=== PATIENT | male | born 1970 ===

== ENCOUNTER 2020-11-07 09:57 | Emergency (ER) | payer OTHER, SELFPAY ==
[2020-11-07 10:13] VITALS: BP 179/90; PULSE 89; RESP 18; TEMP 36.9; O2SAT 95; BMI 40.3
--- NOTE | 2020-11-07 10:31 | ED_ITS ---
HPI - General Adult General Chief complaint: General Medical Stated complaint: leg,knee shoulder pain,work inj Time Seen by Provider: 11/07/20 10:31 Source: patient Mode of arrival: ambulatory Limitations: no limitations History of Present Illness HPI narrative: Patient says yesterday while he was at work a metal door from a truck rolled down onto his back. It did not hit his head and there was no loss of consciousness. He is here with posterior upper arm and right shoulder pain. He also has some left knee pain as he fell to the ground striking his left knee. He believes when he fell he also twisted his lower back and has some pain there. Onset (ago): day(s) Location: back, left, right, upper extremity and lower extremity Radiation: non-radiation Severity: mild Pain Consistency: intermittent Relieving factors: none Exacerbating factors: none Associated symptoms: denies other symptoms Treatments prior to arrival: none Related Data Previous Rx's Medication Instructions Recorded cyclobenzaprine 10 mg PO TID PRN #10 tab 11/07/20 ibuprofen 800 mg PO Q8H PRN #10 tab 11/07/20 Allergies Allergy/AdvReac Type Severity Reaction Status Date / Time From Percocet Allergy Intermediate HIVES Uncoded 07/20/20 15:58 Review of Systems Review of Systems: Yes all other systems are reviewed and are negative Constitutional: Constitutional: Reports no additional constitutional complaints, Denies body ache(s), Denies chills, Denies fever(s), Denies headache(s) and Denies weakness Eyes: Eyes: Reports no additional eye complaints and Denies change in vision ENT: Reports system reviewed and no additional complaints, except as documented, Denies dizziness, Denies headache(s), Denies nasal congestion, Denies nasal discharge and Denies neck pain Cardiovascular: Cardiovascular: Reports no additional cardiovascular complaints, Denies chest pain, Denies leg edema and Denies dyspnea Respiratory: Respiratory: Reports no additional respiratory complaints, Denies cough and Denies dyspnea Gastrointestinal: Gastrointestinal: Reports no additional gastrointestinal complaints, Denies abdominal pain, Denies diarrhea, Denies nausea and Denies vomiting Genitourinary: Genitourinary: Denies urinary incontinence Musculoskeletal: Musculoskeletal: Reports no additional musculoskeletal complaints, Denies back pain, Reports arthralgias, Denies joint swelling, Denies neck pain, Denies numbness and Denies tingling Integumentary/Breasts: Skin/Breast: Reports system reviewed and no additional complaints, except as docu and Denies rash Neurologic: Reports system reviewed and no additional complaints, except as documented, Denies Abnormal speech present, Denies dizziness, Denies headache(s), Denies numbness, Denies tingling and Denies weakness PMFSH Past Medical History Attestation statement: The following information was validated with the patient. Source: old records reviewed and nursing notes reviewed Medical History Hypothyroid Social History Social History Advance Directives: No Advance Directives Information Provided: Yes Physical Exam Vital Signs: Vital Signs: Last Vital Signs Temp 98.5 F 11/07/20 10:13 Pulse 89 11/07/20 10:13 Resp 18 11/07/20 10:13 BP 179/90 H 11/07/20 10:13 Pulse Ox 95 11/07/20 10:13 Body Mass Index 40.3 Const: General: cooperative, healthy appearing, comfortable and no acute distress Orientation/consciousness: patient oriented x3 Limitations: no limitations HENMT: Head: Yes normal to inspection Ears: hearing grossly normal bilaterally General nose exam: Normal external nose present Face and sinus: Yes normal facial exam Mouth: Normal oral and palatal mucosa present Throat: Yes posterior oropharynx normal Eyes: General: appearance normal, both eyes and all related structures Pupils: Equal, round and reactive pupils present Neck: Neck: Yes normal visual inspection Chest: Chest palpation & inspection: normal inspection of the chest Resp: Effort & Inspection: normal respiratory effort Auscultation: clear to auscultation bilaterally Cardio: Rate: regular rate Rhythm: regular rhythm Peripheral pulses: Peripheral pulses 2+ throughout GI: Inspection: Yes normal to inspection Palpation (GI): Soft to palpation and nontender Auscultation: normal bowel sounds Back/Spine/Pelvis: Other: Midline lumbar tenderness with no step-offs or def ormities. Thoracic/Lumbar Spine: thoracic and lumbar spine normal to inspection Skin: General skin exam: no rashes or lesions noted Neuro: General: patient oriented x3, no focal motor deficits and normal sensation to monofilament Cranial nerves: Yes Equal, round and reactive pupils present Cognition (Neuro): normal cognition Speech: No Abnormal speech present Gait exam (Neuro): Normal gait present Motor exam (neuro): 5/5 motor strength present throughout Extrem: Other: Posterior right shoulder pain and posterior upper arm ecchymosis. There is full range of motion. Neurovascularly intact distally. No obvious swelling or deformity. To the left knee there is a small abrasion over the patella. There is no obvious deformity or swelling. Full range of motion. Patient is weight-bearing General: Yes normal to inspection Course Course Course Narrative: Will check imaging 1159-imaging shows some arthritic changes but no acute fracture or dislocation. Will have follow-up with [facility]. Worrisome signs and symptoms and when to return to the emergency department. Comfortable discharge home. Medical Decision Making Imaging Data knee-xray: Attestation: I personally reviewed and interpreted this imaging study as follows: Radiologist's impression: LEFT KNEE: The tricompartment joint space is maintained normal.. No visible fracture, dislocation or subluxation seen. No loose bodies or suprapatellar joint effusion noted. lumbar spine: Attestation: I personally reviewed and interpreted this imaging study as follows: Radiologist's impression: LUMBAR SPINE: There is maintained lumbar lordosis. The vertebral heights and alignment is normal. There is mild loss of L4-L5 and L5-S1 disc heights. There is mild ventral spondylosis at L4-L5 and L1-L2 disc levels. SI joints are symmetrical and normal. shoulder xray: Attestation: I personally reviewed and interpreted this imaging study as follows: Radiologist's impression: RIGHT SHOULDER: There is no visible acute fracture, dislocation or subluxation. Mild loss of right AC joint with mild periarticular spurring. There is mild inferior acromial spurring as well. On AP view there is an artifact traversing along the superior glenoid simulating a fracture. . But no acute fracture or dislocation seen. No soft tissue calcification of soft tissue swelling. Discharge Plan Discharge Clinical Impression: Contusion Qualifiers: Encounter type: initial encounter Contusion area: shoulder Laterality: right Qualified Code(s): S40.011A - Contusion of right shoulder, initial encounter Patient Disposition: Home, Self-Care Instructions: Contusion in Adults (ED) Additional Instructions: Your x-rays are unremarkable. These are likely contusions over your knee, back, shoulder Ice the areas Gentle stretching Prescriptions: New cyclobenzaprine 10 mg tablet 10 mg PO TID PRN (Reason: muscle spasm) Qty: 10 RF: 0 ibuprofen 800 mg tablet 800 mg PO Q8H PRN (Reason: pain) Qty: 10 RF: 0 Referrals: Physician,Unknown [Primary Care Provider] - 2 days ([facility] [phone]) Stand Alone Forms: Work/School Release Interventions: ED Discharge Assessment Last Done: 11/07/20 11:45 Discharge Date/Time: 11/07/20 11:46
--- NOTE | 2020-11-07 10:39 | XR_ITS ---
EXAMINATION: LEFT KNEE, LUMBAR SPINE AND RIGHT SHOULDER CLINICAL INFORMATION: Trauma, an. COMPARISON: None. TECHNIQUE: Left knee 4 views, lumbar spine 3 views, right shoulder 3 views. FINDINGS: LEFT KNEE: The tricompartment joint space is maintained normal.. No visible fracture, dislocation or subluxation seen. No loose bodies or suprapatellar joint effusion noted. LUMBAR SPINE: There is maintained lumbar lordosis. The vertebral heights and alignment is normal. There is mild loss of L4-L5 and L5-S1 disc heights. There is mild ventral spondylosis at L4-L5 and L1-L2 disc levels. SI joints are symmetrical and normal. RIGHT SHOULDER: There is no visible acute fracture, dislocation or subluxation. Mild loss of right AC joint with mild periarticular spurring. There is mild inferior acromial spurring as well. On AP view there is an artifact traversing along the superior glenoid simulating a fracture. . But no acute fracture or dislocation seen. No soft tissue calcification of soft tissue swelling. XR/XR shoulder RT min 2V IMPRESSION: No acute fracture or dislocation left knee. Mild degenerative changes L4-L5 and L5-S1 disc levels with mild ventral spondylosis at the L4-L5 and L1-L2 disc level. Mild degenerative changes right AC joint and inferior acromial spurring. No visible acute fracture or dislocation seen.
--- NOTE | 2020-11-07 10:39 | XR_ITS ---
EXAMINATION: LEFT KNEE, LUMBAR SPINE AND RIGHT SHOULDER CLINICAL INFORMATION: Trauma, an. COMPARISON: None. TECHNIQUE: Left knee 4 views, lumbar spine 3 views, right shoulder 3 views. FINDINGS: LEFT KNEE: The tricompartment joint space is maintained normal.. No visible fracture, dislocation or subluxation seen. No loose bodies or suprapatellar joint effusion noted. LUMBAR SPINE: There is maintained lumbar lordosis. The vertebral heights and alignment is normal. There is mild loss of L4-L5 and L5-S1 disc heights. There is mild ventral spondylosis at L4-L5 and L1-L2 disc levels. SI joints are symmetrical and normal. RIGHT SHOULDER: There is no visible acute fracture, dislocation or subluxation. Mild loss of right AC joint with mild periarticular spurring. There is mild inferior acromial spurring as well. On AP view there is an artifact traversing along the superior glenoid simulating a fracture. . But no acute fracture or dislocation seen. No soft tissue calcification of soft tissue swelling. XR/XR knee LT 3V IMPRESSION: No acute fracture or dislocation left knee. Mild degenerative changes L4-L5 and L5-S1 disc levels with mild ventral spondylosis at the L4-L5 and L1-L2 disc level. Mild degenerative changes right AC joint and inferior acromial spurring. No visible acute fracture or dislocation seen.
--- NOTE | 2020-11-07 10:40 | XR_ITS ---
EXAMINATION: LEFT KNEE, LUMBAR SPINE AND RIGHT SHOULDER CLINICAL INFORMATION: Trauma, an. COMPARISON: None. TECHNIQUE: Left knee 4 views, lumbar spine 3 views, right shoulder 3 views. FINDINGS: LEFT KNEE: The tricompartment joint space is maintained normal.. No visible fracture, dislocation or subluxation seen. No loose bodies or suprapatellar joint effusion noted. LUMBAR SPINE: There is maintained lumbar lordosis. The vertebral heights and alignment is normal. There is mild loss of L4-L5 and L5-S1 disc heights. There is mild ventral spondylosis at L4-L5 and L1-L2 disc levels. SI joints are symmetrical and normal. RIGHT SHOULDER: There is no visible acute fracture, dislocation or subluxation. Mild loss of right AC joint with mild periarticular spurring. There is mild inferior acromial spurring as well. On AP view there is an artifact traversing along the superior glenoid simulating a fracture. . But no acute fracture or dislocation seen. No soft tissue calcification of soft tissue swelling. XR/XR lumbar spine 2-3V IMPRESSION: No acute fracture or dislocation left knee. Mild degenerative changes L4-L5 and L5-S1 disc levels with mild ventral spondylosis at the L4-L5 and L1-L2 disc level. Mild degenerative changes right AC joint and inferior acromial spurring. No visible acute fracture or dislocation seen.
[2020-11-07] MEDS: Acetaminophen 325 MG TABLET 975 MG PO (10:49)
== END 2020-11-07 11:46 | disposition home or self-care (01) ==
PROVIDERS: Emergency Provider Emergency Medicine
DX: S40.011A Contusion of right shoulder, initial encounter (principal); S80.212A Abrasion, left knee, initial encounter; W20.8XXA Other cause of strike by thrown, projected or falling object, initial encounter; G89.11 Acute pain due to trauma; M54.5 Low back pain; Y93.89 Activity, other specified; Y92.9 Unspecified place or not applicable; Y99.0 Civilian activity done for income or pay
CPT/HCPCS: 72100; 73030; 73562; 99282; 99283

== ENCOUNTER → 2022-06-24 10:21 | Outpatient (BNVA) | payer OTHER, SELFPAY | PROVIDERS: Visit Provider Anesthesiology | DX: M54.2 Cervicalgia (principal); M47.812 Spondylosis without myelopathy or radiculopathy, cervical region; M50.30 Other cervical disc degeneration, unspecified cervical region; G56.01 Carpal tunnel syndrome, right upper limb; G89.4 Chronic pain syndrome | CPT/HCPCS: 99202 ==

== ENCOUNTER 2022-11-07 13:22 | Outpatient (REF) | payer OTHER, SELFPAY ==
--- NOTE | 2022-11-07 10:00 | EMG_ITS ---
Bilateral median and ulnar motor and sensory studies were performed. Bilateral radial sensory studies were performed and paraspinal muscles were tested with a needle. IMPRESSION: Mild bilateral median neuropathy across carpal tunnel. There is no evidence of radiculopathy. MD KYLE Calixto/CIELO / [id number]
== END 2022-11-07 13:23 | disposition home or self-care (01) ==
LOC: HO.NEURO 13:22
PROVIDERS: Visit Provider Anesthesiology
DX: M47.22 Other spondylosis with radiculopathy, cervical region (principal); M50.10 Cervical disc disorder with radiculopathy, unspecified cervical region
CPT/HCPCS: 95886; 95911

== ENCOUNTER → 2022-11-13 14:18 | Outpatient (BNVA) | payer OTHER, SELFPAY | PROVIDERS: Visit Provider Anesthesiology | DX: M54.2 Cervicalgia (principal); M47.812 Spondylosis without myelopathy or radiculopathy, cervical region; M50.30 Other cervical disc degeneration, unspecified cervical region; M47.816 Spondylosis without myelopathy or radiculopathy, lumbar region; M51.36 Other intervertebral disc degeneration, lumbar region; M54.16 Radiculopathy, lumbar region; G56.01 Carpal tunnel syndrome, right upper limb; G89.4 Chronic pain syndrome | CPT/HCPCS: 99212 ==

== ENCOUNTER → 2022-12-25 15:04 | Outpatient (BNVA) | payer OTHER, SELFPAY | PROVIDERS: Visit Provider Anesthesiology | DX: G89.4 Chronic pain syndrome (principal); M47.812 Spondylosis without myelopathy or radiculopathy, cervical region; M54.2 Cervicalgia; M50.30 Other cervical disc degeneration, unspecified cervical region; M47.26 Other spondylosis with radiculopathy, lumbar region; M51.36 Other intervertebral disc degeneration, lumbar region; G56.01 Carpal tunnel syndrome, right upper limb | CPT/HCPCS: 99212 ==

== ENCOUNTER 2023-01-14 06:11 | Outpatient (REF) | payer OTHER, SELFPAY | END 2023-01-14 06:12 | disposition home or self-care (01) | LOC: CF 06:11 | PROVIDERS: Visit Provider Anesthesiology | DX: Z13.89 Encounter for screening for other disorder (principal) ==

== ENCOUNTER 2023-02-25 06:06 | Outpatient (REF) | payer OTHER, SELFPAY ==
--- NOTE | ~2023-02-25 | FL_ITS ---
EXAMINATION: XR FLUOROSCOPY WITH IMAGES CLINICAL INFORMATION: M47.812 - Spondylosis without myelopathy or radiculopathy, cervical region COMPARISON: None available. TECHNIQUE: Fluoroscopy Supervised By: Dr. Gurdeep Lau. Fluoroscopy Time: 1.4 minutes. Cumulative Dose: 17.8 mGy. DAP: 4.87 Gycm2. Images: 5. FINDINGS: There are spinal needles overlying the left lateral masses cervical spine at C3, C4, and C5. There is contrast in the paraspinal soft tissues and nerve sheaths. No visible vascular communication. FL/FL guidance in treatment room IMPRESSION: Fluoroscopy for pain management procedure.
== END 2023-02-25 06:07 | disposition home or self-care (01) ==
LOC: CF 06:06
PROVIDERS: Visit Provider Anesthesiology
DX: M47.812 Spondylosis without myelopathy or radiculopathy, cervical region (principal); M50.30 Other cervical disc degeneration, unspecified cervical region; M47.816 Spondylosis without myelopathy or radiculopathy, lumbar region; M51.36 Other intervertebral disc degeneration, lumbar region
CPT/HCPCS: 64490; 64491; J2795; J3301

== ENCOUNTER 2023-03-18 06:03 | Outpatient (REF) | payer OTHER, SELFPAY ==
--- NOTE | ~2023-03-18 | FL_ITS ---
EXAMINATION: XR FL GUIDANCE WITH IMAGES CLINICAL INFORMATION: Spondylosis without myelopathy, lumbar region. COMPARISON: 02/25/2023 TECHNIQUE: Fluoroscopy Supervised By: Dr. Gurdeep Lau. Fluoroscopy Time: 0.8 minutes. Cumulative Dose: 23.2 mGy. DAP: 6.33 Gycm2. Images: 8. FINDINGS: [place] are placed about the lateral aspects of L3 through L5 with opacification of soft tissues and nerve sheaths bilaterally. FL/FL guidance in treatment room IMPRESSION: Intraoperative fluoroscopy for pain management procedure.
== END 2023-03-18 06:04 | disposition home or self-care (01) ==
LOC: CF 06:03
PROVIDERS: Visit Provider Anesthesiology
DX: M47.816 Spondylosis without myelopathy or radiculopathy, lumbar region (principal); M51.36 Other intervertebral disc degeneration, lumbar region; M47.812 Spondylosis without myelopathy or radiculopathy, cervical region; M50.30 Other cervical disc degeneration, unspecified cervical region; G89.4 Chronic pain syndrome; G56.01 Carpal tunnel syndrome, right upper limb
CPT/HCPCS: 64493; 64494; 64495; J2795

== ENCOUNTER → 2023-03-20 10:47 | Outpatient (BNVA) | payer OTHER, SELFPAY | PROVIDERS: PCP Internal Medicine; Visit Provider Nurse Practitioner Family | DX: M47.22 Other spondylosis with radiculopathy, cervical region (principal); M54.16 Radiculopathy, lumbar region; M51.36 Other intervertebral disc degeneration, lumbar region | CPT/HCPCS: 99212 ==

== ENCOUNTER → 2023-04-15 14:31 | Outpatient (BNVA) | payer OTHER, SELFPAY | PROVIDERS: PCP Internal Medicine; Visit Provider Neurological Surgery | DX: M47.812 Spondylosis without myelopathy or radiculopathy, cervical region (principal); M47.816 Spondylosis without myelopathy or radiculopathy, lumbar region; G89.4 Chronic pain syndrome | CPT/HCPCS: 99202 ==

== ENCOUNTER → 2023-04-16 11:31 | Outpatient (BNVA) | payer OTHER, SELFPAY | PROVIDERS: PCP Internal Medicine; Visit Provider Anesthesiology | DX: M54.16 Radiculopathy, lumbar region (principal); M47.812 Spondylosis without myelopathy or radiculopathy, cervical region; M54.12 Radiculopathy, cervical region; M51.36 Other intervertebral disc degeneration, lumbar region; M47.816 Spondylosis without myelopathy or radiculopathy, lumbar region; M54.10 Radiculopathy, site unspecified; M50.30 Other cervical disc degeneration, unspecified cervical region; M54.2 Cervicalgia; G56.01 Carpal tunnel syndrome, right upper limb; G89.4 Chronic pain syndrome | CPT/HCPCS: 99212 ==

== ENCOUNTER 2023-06-16 11:39 | Outpatient (AMB) | payer OTHER, SELFPAY ==
--- NOTE | 2023-06-16 11:43 | A.OFFVIS_ITS ---
Intake Vital Signs 06/16/23 11:44 Height 5 ft 4 in Weight 226 lb BMI 38.8 BP 176/96 H Blood Pressure Location Lt brachial Position Sitting Respiration 14 Pulse 86 Pulse Source Pulse Oximeter Pulse Oximetry (%) 95 Oxygen Delivery Method Room Air Intake Visit Reasons: Follow Up /Options Discussion Allergies acetaminophen [From Percocet] Allergy (Unknown, Verified 06/16/23 11:45) Hives oxycodone [From Percocet] Allergy (Unknown, Verified 06/16/23 11:45) Hives From Percocet Allergy (Intermediate, Uncoded 12/25/22 15:24) HIVES HPI HPI Comments History of Present Illness Details Arnulfo is back in my office to discuss for the possibilities of treatment. Last time I offered him [employer] trial of SCS provided that he can pass psychological evaluation. Today he came with the decision not to proceed with spinal cord stimulator. Prolonged and very extensive discussion was today about he has claim for disability, as well as possibility to treat his pain with different medications. Gabapentin and Celebrex were discussed. Black warnings on these drugs were discussed. Patient does not want to consider gabapentin or Celebrex as the mode of treatment. He tried CBD oil on his own and reports 50% pain reduction which is very good. He was informed that he does not need to have any specific cart to consume CBD oil. He also was told that THC is also legal in the state of [place]. Many different questions were asked because his he wants to apply for disability. I explained to him that this is the legal issue and I cannot answer those questions. I recommended to o btain functional capacity evaluation from established office of the [facility]. I will refer him to psychological evaluation. His is with him during the appointment and she requests me to send him to neurologist. I do not mind to send a neurologist but I explained to her that I do not like that the neurological evaluation would be contributing to better outcome. He went for Bilateral Diagnostic L2-L3-L4-L5 MBB on 03/18/23 , he reported 50% pain relief for 3 hours status post procedure. He reports minimal improvement in his mobility, movements, sleep, ADLs and social activities. Patient also reports therapeutic cervical MBBs injections on 02/25/23 provided no pain relief at all. He rates his pain today at 6/10 for his pain generators. Patient reports axial low back pain and left sided radicular pain as well as cervical radicular pain to both of his arm, worse on the left without significant weakness, numbness and tingling. We reviewed his recent EMG and NVC studies and these are noted below. Denies any recent cough, cold, infection, fever or other significant changes in medical history since last office visit. Patient requests referral for neurosurgery center for further evaluation as injections have not provided him significant relief. Patient denies any bladder or bowel incontinence or saddle anesthesia. Past Procedures: 03/18/23: B/L Diagnostic L2-L3-L4-L5 MBB-50% pain relief for 3 hours 02/25/23: Left Therapeutic C2-C3-C4 Medial Branch Blocks-0% pain relief PRIOR 12/25/22 Arnulfo is back in my office complaining on multiple pain generators. Reports pain on the back of his left side neck with radiation to the occipital a 10 and behind the left eye. In the past he reported that the he received injections from the neurosurgeon into his cervical facet joints and he reported that those injections did not help him much. However we are not sure which levels were injected. Possibility exists that C2-C3 C3-C4 area were left untouched because it is high risk area for intra-articular injections. He is scheduled for left- sided medial branch block therapeutic C2-C3 C4 in the order to diagnose and properly attend that pain. He would need to go for this procedure without any sedation. It is at high risk injection. As of his thoracic spine he never was able to attend physical therapy for thoracic pain and I think he should consider physical therapy again after the therapeutic injection in the neck would be done. He also 1st time reported today pain in the low in the back radiating all the way to his 3 middle toes on the left lower extremity. This is L5 nerve root. I will send him for the MRI of the lumbar spine to properly diagnose the condition. As of the EMG the patient had on my order there is no radiculopathy. The only problem is mild median nerve neuropathy probably related to carpal tunnel syndrome. As of his lower back pain I sent him to the MRI and dictation of MRI is as below. The MRI is positive for L5-S1 partial effacement of perineural fat with no more than mild mass effect on the right L5 foraminal nerve root. However the patient is complaining on left-sided pain. The pain radiates down to the lower extremity. However does not mean that the right-sided nerve root effacement is involved in this pain. I offered him and I will schedule him for diagnostic medial branch block L2, L3, L4 does ramus L5 bilateral to properly diagnose his pain Prior: complains on pain in the neck and upper shoulders as well as pain in thoracic spine and pain in the right shoulder joint. He relates this pain to industrial accident where metal door hitting the back of his head neck and upper thoracic spine with its age. He is still under workman's comp. 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 He reports that pain onset was sudden he reports that he cannot sleep normally cannot do activities of daily living because of his pain he can take care of himself but he cannot function normally. He is self mobile. He reports that movements aggravates his pain. He was under care of neurosurgeon in [place], [place], he went for extensive physical therapy chiropractic manipulation and massage therapy as well as 10s unit and he says that nothing helps his pain. He reports that the MRI of the cervical spine is available at [facility] in [place]. Will send for this MRI full description. The note from referral Contain some minimal description of the MRI but details are missing. Also his surgeon performed intra-articular steroid injections into his neck joint . [facility] Medical History Hypothyroid Review of Systems Const All systems reviewed & are unremarkable except as noted in HPI and below Neuro Denies Abnormal speech present and Denies confusion Psych Denies confusion Physical Exam Vital Signs: Last Vital Signs Pulse 86 06/16/23 11:44 Resp 14 06/16/23 11:44 BP 176/96 H 06/16/23 11:44 Pulse Ox 95 06/16/23 11:44 Oxygen Delivery Method Room Air 06/16/23 11:44 BMI result Body Mass Index 38.8 Const General: cooperative, healthy appearing, comfortable, no acute distress, alert, awake and well groomed; No confusion Nutritional Appearance: well nourished and obese Orientation/consciousness: patient oriented x3 and No confusion Limitations: no limitations HEENT Head: Yes normal to inspection, Yes normocephalic and Yes atraumatic Ears: hearing grossly normal bilaterally Face and sinus: Yes normal facial exam and Yes face symmetric Mouth: Normal oral and palatal mucosa present Eyes General: appearance normal, both eyes and all related structures Pupils: Equal, round and reactive pupils present Neck Other: Patient with decreased cervical ROM in all planes/especially with left lateral rotation. Reports increased pain with cervical extension. Spurling compression test positive. Pain is unchanged by Spurling maneuver with retraction. Elvey's tension test positive on left, with radiation of pain from neck to wrist. Lhermitte's test was negative. DTR intact, +2 and symmetrical.? Patient demonstrated 5/5 motor strength of bilateral upper extremities. 2 + radial pulses. Left wrist pain with flexion. Tinel's and Phalen's are negative bilaterally. Neck: Yes normal visual inspection, Yes no lymphadenopathy, Yes trachea midline, Yes supple, No anterior neck swelling, No midline deformity and Yes no JVD Resp Effort & Inspection: normal respiratory effort, able to speak in complete sentences, no cough, no respiratory distress and symmetric chest movement Cardio Peripheral pulses: Peripheral pulses 2+ throughout GI Inspection: Yes normal to inspection and Yes obesity Palpation (GI): Soft to palpation and nontender Auscultation: normal bowel sounds Back/Spine/Pelvis Cervical Spine: cervical muscular tenderness, pain with cervical ROM, No Cervical spine tenderness and No step off deformity Thoracic/Lumbar Spine: thoracic and lumbar spine normal to inspection, Lasegue's sign positive bilateral and diffuse, pain with thoraco-lumbar ROM, paraspinal muscle tenderness, thoracic spinal tenderness, lumbar spinal tenderness and straight leg raise positive bilateral at 60 degrees Skin General skin exam: no rashes or lesions noted Neuro General: patient oriented x3, no focal motor deficits, normal sensation to monofilament and No confusion Cranial nerves: Yes Equal, round and reactive pupils present Cognition (Neuro): normal cognition Speech: No Abnormal speech present Gait exam (Neuro): Normal gait present and No Assistive device used Motor exam (neuro): 5/5 motor strength present throughout, no tremor noted and Motor abnormalities not present Extrem General: Yes capillary refill normal, Yes no clubbing, cyanosis or edema and Yes no calf tenderness Psych Appearance: grossly normal and well kempt Mental Status: mental status grossly normal Speech and movement: Normal speech and movement present Affect: normal affect Attitude: cooperative Thought process: Normal thought process present Thought content: Normal thought content present Insight: Good insight present (Psych) Judgement: Good judgement present (Psych) Assessment & Plan Assessment & Plan (1) Radiculopathy, lumbar region: Code(s): M54.16 - Radiculopathy, lumbar region (2) Cervical spondylosis: Code(s): M47.812 - Spondylosis without myelopathy or radiculopathy, cervical region (3) Cervical radiculopathy: Code(s): M54.12 - Radiculopathy, cervical region (4) Disc degeneration, lumbar: Code(s): M51.36 - Other intervertebral disc degeneration, lumbar region (5) Spondylosis of lumbar spine: Code(s): M47.816 - Spondylosis without myelopathy or radiculopathy, lumbar region (6) Radiculopathy affecting upper extremity: Code(s): M54.10 - Radiculopathy, site unspecified (7) Chronic pain syndrome: Code(s): G89.4 - Chronic pain syndrome (8) Carpal tunnel syndrome, right: Code(s): G56.01 - Carpal tunnel syndrome, right upper limb (9) Degeneration, intervertebral disc, cervical: Code(s): M50.30 - Other cervical disc degeneration, unspecified cervical region (10) Cervicalgia: Code(s): M54.2 - Cervicalgia Plan Patient is status post lumbar medial branch nerve blocks with 50% pain relief for 3 hours and reports previous therapeutic cervical MBBs injection provided no pain relief. Prior to repeating these injection to establish reproducible response to treatment for potential stimulative or ablative treatments, patient and his family requested neurosurgical referral for evaluation for potential surgical intervention for neck and back pain with radicular symptoms. He was seen by a Dr. Licona office and no reason to operate on his neck or lower back was found by any neurosurgical evaluation. Now the requests me to send him for neurological consult. I will send him for [facility] neurologist. I offered him SCS treatment [employer] potentially [facility]. We agreed that in [employer] will not be working for him I will switch him to [facility]. However the patient decided not to go for spinal cord stimulation procedure. I DDD was briefly mentioned. I will see this patient after he will complete his psychological evaluation for which he will be referred from this office. Coding Level of Care Code Est Pt Level 4 (97386) Diagnoses Radiculopathy, lumbar region M54.16 Cervical spondylosis M47.812 Cervical radiculopathy M54.12 Disc degeneration, lumbar M51.36 Spondylosis of lumbar spine M47.816 Radiculopathy affecting upper extremity M54.10 Chronic pain syndrome G89.4 Carpal tunnel syndrome, right G56.01 Degeneration, intervertebral disc, cervical M50.30 Cervicalgia M54.2
[2023-06-16 11:44] VITALS: BP 176/96; PULSE 86; RESP 14; O2SAT 95; BMI 38.8
== END 2023-06-16 12:29 | disposition home or self-care (01) ==
PROVIDERS: PCP Internal Medicine; Visit Provider Anesthesiology
DX: G89.4 Chronic pain syndrome (principal); M47.22 Other spondylosis with radiculopathy, cervical region; M47.26 Other spondylosis with radiculopathy, lumbar region; M51.36 Other intervertebral disc degeneration, lumbar region; G56.01 Carpal tunnel syndrome, right upper limb; M50.30 Other cervical disc degeneration, unspecified cervical region; M54.2 Cervicalgia
CPT/HCPCS: 99214

== ENCOUNTER → 2023-06-16 11:39 | Outpatient (BNVA) | payer OTHER, SELFPAY | PROVIDERS: PCP Internal Medicine; Visit Provider Anesthesiology | DX: M47.26 Other spondylosis with radiculopathy, lumbar region (principal); M47.22 Other spondylosis with radiculopathy, cervical region; G89.4 Chronic pain syndrome; G56.01 Carpal tunnel syndrome, right upper limb; M50.30 Other cervical disc degeneration, unspecified cervical region | CPT/HCPCS: 99212 ==

== ENCOUNTER 2024-11-08 15:16 | Outpatient (AMB) | payer OTHER, SELFPAY ==
--- NOTE | 2024-11-08 15:33 | MHC.OFFVIS ---
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 He is suffering from spondylosis of cervical spine as well as spondylosis of the lumbar spine. He complains on pain in the back of the head with radiation to the front of the head and lacrimation in the left eye. I recommended him to try sprint PNS at bilateral C3 positioned however patient is head turned to go for this procedure. In the past I offered him him [employer] trial of SCS provided that he can pass psychological evaluation. However he was hesitant to go for this procedure as well. Sprint PNS brochure was given. The patient will be thinking about the procedure if he has interested we will schedule him for bilateral C3 sprint PNS. I will refer him to psychological evaluation. His is with him during the appointment and she requests me to send him to neurologist. I do not mind to send a neurologist but I explained to her that I do not like that the neurological evaluation would be contributing to better outcome. He went for Bilateral Diagnostic L2-L3-L4-L5 MBB on 03/18/23 , he reported 50% pain relief for 3 hours status post procedure. He reports minimal improvement in his mobility, movements, sleep, ADLs and social activities. Patient also reports therapeutic cervical MBBs injections on 02/25/23 provided no pain relief at all. He rates his pain today at 6/10 for his pain generators. Patient reports axial low back pain and left sided radicular pain as well as cervical radicular pain to both of his arm, worse on the left without significant weakness, numbness and tingling. We reviewed his recent EMG and NVC studies and these are noted below. Denies any recent cough, cold, infection, fever or other significant changes in medical history since last office visit. Patient requests referral for neurosurgery center for further evaluation as injections have not provided him significant relief. Patient denies any bladder or bowel incontinence or saddle anesthesia. Past Procedures: 03/18/23: B/L Diagnostic L2-L3-L4-L5 MBB-50% pain relief for 3 hours 02/25/23: Left Therapeutic C2-C3-C4 Medial Branch Blocks-0% pain relief PRIOR 12/25/22 Arnulfo is back in my office complaining on multiple pain generators. Reports pain on the back of his left side neck with radiation to the occipital a 10 and behind the left eye. In the past he reported that the he received injections from the neurosurgeon into his cervical facet joints and he reported that those injections did not help him much. However we are not sure which levels were injected. Possibility exists that C2-C3 C3-C4 area were left untouched because it is high risk area for intra-articular injections. He is scheduled for left-sided medial branch block therapeutic C2-C3 C4 in the order to diagnose and properly attend that pain. He would need to go for this procedure without any sedation. It is at high risk injection. As of his thoracic spine he never was able to attend physical therapy for thoracic pain and I think he should consider physical therapy again after the therapeutic injection in the neck would be done. He also 1st time reported today pain in the low in the back radiating all the way to his 3 middle toes on the left lower extremity. This is L5 nerve root. I will send him for the MRI of the lumbar spine to properly diagnose the condition. As of the EMG the patient had on my order there is no radiculopathy. The only problem is mild median nerve neuropathy probably related to carpal tunnel syndrome. As of his lower back pain I sent him to the MRI and dictation of MRI is as below. The MRI is positive for L5-S1 partial effacement of perineural fat with no more than mild mass effect on the right L5 foraminal nerve root. However the patient is complaining on left-sided pain. The pain radiates down to the lower extremity. However does not mean that the right-sided nerve root effacement is involved in this pain. I offered him and I will schedule him for diagnostic medial branch block L2, L3, L4 does ramus L5 bilateral to properly diagnose his pain Prior: complains on pain in the neck and upper shoulders as well as pain in thoracic spine and pain in the right shoulder joint. He relates this pain to industrial accident where metal door hitting the back of his head neck and upper thoracic spine with its age. He is still under workman's comp. 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 He reports that pain onset was sudden he reports that he cannot sleep normally cannot do activities of daily living because of his pain he can take care of himself but he cannot function normally. He is self mobile. He reports that movements aggravates his pain. He was under care of neurosurgeon in [place], [place], he went for extensive physical therapy chiropractic manipulation and massage therapy as well as 10s unit and he says that nothing helps his pain. He reports that the MRI of the cervical spine is available at [facility] in [place]. Will send for this MRI full description. The note from referral Contain some minimal description of the MRI but details are missing. Also his surgeon performed intra-articular steroid injections into his neck joint . [facility] Medical History Hypothyroid Review of Systems Const All systems reviewed & are unremarkable except as noted in HPI and below Neuro Denies Abnormal speech present and Denies confusion Psych Denies confusion Physical Exam Vital Signs: Last Vital Signs Pulse 75 11/08/24 15:36 BP 191/101 H 11/08/24 15:36 Pulse Ox 98 11/08/24 15:36 Oxygen Delivery Method Room Air 11/08/24 15:36 BMI result Body Mass Index 37.6 Const General: cooperative, healthy appearing, comfortable, no acute distress, alert, awake and well groomed; No confusion Nutritional Appearance: well nourished and obese Orientation/consciousness: patient oriented x3 and No confusion Limitations: no limitations HEENT Head: Yes normal to inspection, Yes normocephalic and Yes atraumatic Ears: hearing grossly normal bilaterally Face and sinus: Yes normal facial exam and Yes face symmetric Mouth: Normal oral and palatal mucosa present Eyes General: appearance normal, both eyes and all related structures Pupils: Equal, round and reactive pupils present Neck Other: Patient with decreased cervical ROM in all planes/especially with left lateral rotation. Reports increased pain with cervical extension. Spurling compression test positive. Pain is unchanged by Spurling maneuver with retraction. Elvey's tension test positive on left, with radiation of pain from neck to wrist. Lhermitte's test was negative. DTR intact, +2 and symmetrical.? Patient demonstrated 5/5 motor strength of bilateral upper extremities. 2 + radial pulses. Left wrist pain with flexion. Tinel's and Phalen's are negative bilaterally. Neck: Yes normal visual inspection, Yes no lymphadenopathy, Yes trachea midline, Yes supple, No anterior neck swelling, No midline deformity and Yes no JVD Resp Effort & Inspection: normal respiratory effort, able to speak in complete sentences, no cough, no respiratory distress and symmetric chest movement Cardio Peripheral pulses: Peripheral pulses 2+ throughout GI Inspection: Yes normal to inspection and Yes obesity Palpation (GI): Soft to palpation and nontender Auscultation: normal bowel sounds Back/Spine/Pelvis Cervical Spine: cervical muscular tenderness, pain with cervical ROM, No Cervical spine tenderness and No step off deformity Thoracic/Lumbar Spine: thoracic and lumbar spine normal to inspection, Lasegue's sign positive bilateral and diffuse, pain with thoraco-lumbar ROM, paraspinal muscle tenderness, thoracic spinal tenderness, lumbar spinal tenderness and straight leg raise positive bilateral at 60 degrees Skin General skin exam: no rashes or lesions noted Neuro General: patient oriented x3, no focal motor deficits, normal sensation to monofilament and No confusion Cranial nerves: Yes Equal, round and reactive pupils present Cognition (Neuro): normal cognition Speech: No Abnormal speech present Gait exam (Neuro): Normal gait present and No Assistive device used Motor exam (neuro): 5/5 motor strength present throughout, no tremor noted and Motor abnormalities not present Extrem General: Yes capillary refill normal, Yes no clubbing, cyanosis or edema and Yes no calf tenderness Psych Appearance: grossly normal and well kempt Mental Status: mental status grossly normal Speech and movement: Normal speech and movement present Affect: normal affect Attitude: cooperative Thought process: Normal thought process present Thought content: Normal thought content present Insight: Good insight present (Psych) Judgement: Good judgement present (Psych) Assessment & Plan Assessment & Plan (1) Radiculopathy, lumbar region: Code(s): M54.16 - Radiculopathy, lumbar region Category: Medical (2) Cervical spondylosis: Code(s): M47.812 - Spondylosis without myelopathy or radiculopathy, cervical region Category: Medical (3) Cervical radiculopathy: Code(s): M54.12 - Radiculopathy, cervical region Category: Medical (4) Disc degeneration, lumbar: Code(s): M51.36 - Other intervertebral disc degeneration, lumbar region Category: Medical (5) Spondylosis of lumbar spine: Code(s): M47.816 - Spondylosis without myelopathy or radiculopathy, lumbar region Category: Medical (6) Radiculopathy affecting upper extremity: Code(s): M54.10 - Radiculopathy, site unspecified Category: Medical (7) Chronic pain syndrome: Code(s): G89.4 - Chronic pain syndrome Category: Medical (8) Carpal tunnel syndrome, right: Code(s): G56.01 - Carpal tunnel syndrome, right upper limb Category: Medical (9) Degeneration, intervertebral disc, cervical: Code(s): M50.30 - Other cervical disc degeneration, unspecified cervical region Category: Medical (10) Cervicalgia: Code(s): M54.2 - Cervicalgia Category: Medical (11) Intractable back pain: Code(s): M54.9 - Dorsalgia, unspecified Category: Medical Plan Discussion of his condition see as above. Sprint PNS brochure was given. If he will decide to go for this procedure we will schedule him for left 1st and the right 2nd insertion of C3 sprint PNS device. Patient Instructions: I hereby testify that I spent 34 minutes in conversation with this patient as well as evaluating his prior images and prior diagnostic studies as well as planning his care and organizing this note. Coding Level of Care Code Est Pt Level 4 (01557) Diagnoses Radiculopathy, lumbar region M54.16 Cervical spondylosis M47.812 Cervical radiculopathy M54.12 Disc degeneration, lumbar M51.36 Spondylosis of lumbar spine M47.816 Radiculopathy affecting upper extremity M54.10 Chronic pain syndrome G89.4 Carpal tunnel syndrome, right G56.01 Degeneration, intervertebral disc, cervical M50.30 Cervicalgia M54.2 Intractable back pain M54.9
[2024-11-08 15:36] VITALS: BP 191/101; PULSE 75; O2SAT 98; BMI 37.6
== END 2024-11-08 15:54 | disposition home or self-care (01) ==
PROVIDERS: PCP Internal Medicine; Visit Provider Anesthesiology
DX: M54.16 Radiculopathy, lumbar region (principal); M47.812 Spondylosis without myelopathy or radiculopathy, cervical region; M54.12 Radiculopathy, cervical region; M51.369 Other intervertebral disc degeneration, lumbar region without mention of lumbar back pain or lower extremity pain; M47.816 Spondylosis without myelopathy or radiculopathy, lumbar region; M54.10 Radiculopathy, site unspecified; G89.4 Chronic pain syndrome; G56.01 Carpal tunnel syndrome, right upper limb; M50.30 Other cervical disc degeneration, unspecified cervical region; M54.2 Cervicalgia; M54.9 Dorsalgia, unspecified
CPT/HCPCS: 99214

== ENCOUNTER → 2024-11-08 15:16 | Outpatient (BNVA) | payer OTHER, SELFPAY | PROVIDERS: PCP Internal Medicine; Visit Provider Anesthesiology | DX: M54.16 Radiculopathy, lumbar region (principal); M47.812 Spondylosis without myelopathy or radiculopathy, cervical region; M54.12 Radiculopathy, cervical region; M51.360 Other intervertebral disc degeneration, lumbar region with discogenic back pain only; M47.816 Spondylosis without myelopathy or radiculopathy, lumbar region; M54.10 Radiculopathy, site unspecified; M50.30 Other cervical disc degeneration, unspecified cervical region; M54.2 Cervicalgia; M54.9 Dorsalgia, unspecified; G56.01 Carpal tunnel syndrome, right upper limb; G89.4 Chronic pain syndrome | CPT/HCPCS: 99212 ==